=== PATIENT | female | born 1960 | race Caucasian/White ===

== ENCOUNTER 2017-10-09 08:54 | Emergency (ER) | payer BC ==
[~2017-10-09] VITALS: Ht 152.4 cm; Wt 47.6 kg
--- NOTE | ~2017-10-09 | EKG ---
[address] [place] [address] ELECTROCARDIOGRAM REPORT Name: ALETA KAM Room #: [facility]#: [id number] Admission: 10/09/17 Attend Phys: Discharge: 10/09/17 Date of : 60 Report #: [id number] THIS REPORT FOR: //name// [facility] ED Test Date: 2017-10-09 Test Time: 09:13:41 Pat Name: ALETA KAM Department: Room: Gender: F Telehealth Coordinator: Renetta OLEA : 1960 Requested By: Pritesh Bowling Order Number: [id number] MD: Flaco Pugh Measurements Intervals Kite Rate: 94 P: 51 MS: 213 QRS: -56 QRSD: 98 T: 34 QT: 398 QTc: 498 Interpretive Statements Sinus rhythm Prolonged MS interval Left anterior fascicular block Abnormal R-wave progression, late transition Borderline T wave abnormalities No previous ECG available for comparison Electronically Signed On 10-09-2017 16:10:58 CONSTRUCTION CHECKER by Flaco Pugh [email or web address] <ELECTRONICALLY SIGNED> By: Flaco Pugh MD 10/09/17 1610 2 2 Flaco [email or web address] MD /KAIDEN
[2017-10-09] MEDS ORDERED: UNICOMPLEX M TA1 TA1 PO (08:59)
[2017-10-09 09:09] LABS: HEMATOCRIT 39.7 % (37.0-47.0); HEMOGLOBIN 13.4 gm/dL (12.0-15.0); MCH 32.8 pg (26.0-34.0); MCHC 33.6 g/dL (28.0-37.0); MCV 97.6 fL (80.0-100.0); PLATELET COUNT 186 thou/uL (150-400); RBC 4.07 mil/uL (4.20-5.00); RDW 13.6 % (10.5-14.5); WBC 5.6 thou/uL (4.0-11.0)
[2017-10-09 09:11] LABS: POC CA IONIZED 4.6 mg/dL (4.5-5.3); POC CREATININE 0.6 mg/dL (0.6-1.3); POC HEMOGLOBIN 13.9 g/dL (12.0-15.0); POC POTASSIUM 3.1 mmol/L (3.5-5.1)
[2017-10-09 09:21] LABS: MANUAL DIFF YES
[2017-10-09 09:28] LABS: PROTIME 10.7 Seconds (9.3-11.4)
[2017-10-09 09:33] LABS: CREATININE 0.7 mg/dL (0.6-1.0); POTASSIUM 3.1 mmol/L (3.5-5.1)
[2017-10-09 09:40] LABS: ALBUMIN 4.5 g/dL (3.4-5.0); TOTAL BILIRUBIN 1.8 mg/dL (<0.1-1.0); TOTAL PROTEIN 8.7 g/dL (6.4-8.2)
[2017-10-09 09:52] LABS: ABSOLUTE NEUTROPHILS 3.7 thou/uL (1.4-8.2); ANISOCYTOSIS 1+; POLYCHROMASIA OCCASIONAL; TOTAL CELL COUNT 100
[2017-10-09 10:11] LABS: URINE BILIRUBIN NEGATIVE (Negative); URINE BLOOD TRACE (Negative); URINE COLOR YELLOW; URINE GLUCOSE-RANDOM* NEGATIVE (Negative); URINE KETONES 1+ (Negative); URINE NITRITE NEGATIVE (Negative); URINE PROTEIN (DIPSTICK) 1+ (Negative); URINE UROBILINOGEN 0.2 E.U./dl (0.2-1.0)
[2017-10-09 10:19] LABS: AMP/METHAMP Negative (Negative); BARBITURATES Negative (Negative); BENZODIAZEPINES Negative (Negative); COCAINE Negative (Negative); METHADONE Negative (Negative); OPIATES Negative (Negative); PCP Negative (Negative); THC Negative (Negative)
[2017-10-09 10:27] LABS: AMORPHOUS URATES Many /LPF (None Seen); CASTS None Seen /LPF (None Seen); SQUAMOUS None Seen /LPF (0-3); URINE RBC 0-2 Rare /HPF (0-2)
[2017-10-09 10:28] LABS: BACTERIA 1-9 Few /HPF (None Seen); URINE WBC 0-5 Rare /HPF (0-5)
[2017-10-09] MEDS ORDERED: MACROBID 100 M100 M1 PO (10:30)
[2017-10-09 11:11] VITALS: BP 164/86
== END 2017-10-09 11:11 | disposition home or self-care (01) ==
LOC: ER 08:54
PROVIDERS: Physician Assistant
DX: E87.6 Hypokalemia (principal); N39.0 Urinary tract infection, site not specified; R11.2 Nausea with vomiting, unspecified; F10.99 Alcohol use, unspecified with unspecified alcohol-induced disorder; Z90.49 Acquired absence of other specified parts of digestive tract; Z88.0 Allergy status to penicillin

== ENCOUNTER 2019-07-22 00:38 | Emergency (ER) | payer BC ==
[~2019-07-22] VITALS: Ht 152.4 cm; Wt 49.0 kg
[~2019-07-22 00:38] MED LIST: MACROBID 100 M100 M1 PO; UNICOMPLEX M TA1 TA1 PO
[2019-07-22 00:39] VITALS: BP 151/97
== END 2019-07-22 01:37 | disposition home or self-care (01) ==
LOC: ER 00:38
DX: S50.11XA Contusion of right forearm, initial encounter (principal); Z90.49 Acquired absence of other specified parts of digestive tract; Z90.710 Acquired absence of both cervix and uterus; Z88.0 Allergy status to penicillin; W01.0XXA Fall on same level from slipping, tripping and stumbling without subsequent striking against object, initial encounter; Y93.89 Activity, other specified; Y92.098 Other place in other non-institutional residence as the place of occurrence of the external cause; Y99.8 Other external cause status

== ENCOUNTER 2019-07-25 13:50 | Emergency (ER) | payer OTHER ==
[~2019-07-25] VITALS: Ht 152.4 cm; Wt 49.0 kg
[2019-07-25 16:21] VITALS: BP 139/86
== END 2019-07-25 16:22 | disposition home or self-care (01) ==
LOC: ER 13:50
DX: S50.11XA Contusion of right forearm, initial encounter (principal); M25.531 Pain in right wrist; M25.521 Pain in right elbow; Z90.49 Acquired absence of other specified parts of digestive tract; Z90.710 Acquired absence of both cervix and uterus; Z88.0 Allergy status to penicillin; W01.198A Fall on same level from slipping, tripping and stumbling with subsequent striking against other object, initial encounter; Y93.89 Activity, other specified; Y92.008 Other place in unspecified non-institutional (private) residence as the place of occurrence of the external cause; Y99.8 Other external cause status